=== PATIENT | female | born 1960 | race Caucasian/White ===

== ENCOUNTER 2020-12-26 23:46 | Emergency (ER) | payer OTHER ==
[2020-12-27] MEDS ORDERED: BACTRIM DS TAB1 EACH PO (02:25)
[2020-12-27] MEDS ORDERED: CEPHALEXIN500 MG PO (02:25)
[2021-02-24] MEDS ORDERED: COLACE100 MG PO (10:06)
[2021-02-24] MEDS ORDERED: PERCOCET 5-3251 EACH PO (10:06)
== END 2020-12-27 02:39 | disposition home or self-care (01) ==
LOC: ER1 23:46
DX: L02.415 Cutaneous abscess of right lower limb (principal); I10 Essential (primary) hypertension; J45.909 Unspecified asthma, uncomplicated; F17.210 Nicotine dependence, cigarettes, uncomplicated; Z90.710 Acquired absence of both cervix and uterus; Z79.899 Other long term (current) drug therapy
CPT/HCPCS: 99282

== ENCOUNTER 2021-02-13 17:44 | Emergency (ER) | payer OTHER ==
[~2021-02-13 17:44] MED LIST: BACTRIM DS TAB1 EACH PO; CEPHALEXIN500 MG PO
[2021-02-24] MEDS ORDERED: PERCOCET 5-3251 EACH PO (10:06)
[2021-02-24] MEDS ORDERED: COLACE100 MG PO (10:06)
== END 2021-02-13 18:35 | disposition home or self-care (01) ==
LOC: ER1 17:44
DX: K62.89 Other specified diseases of anus and rectum (principal); L98.9 Disorder of the skin and subcutaneous tissue, unspecified
CPT/HCPCS: 99283

== ENCOUNTER → 2021-02-23 | Outpatient (CLI) | payer OTHER ==
[~2021-02-23] MED LIST changes: +COLACE100 MG PO; +PERCOCET 5-3251 EACH PO
[2021-02-23 10:47] LABS: HEMOGLOBIN 13.8 gm/dl (12.3-15.3); RED BLOOD COUNT 4.68 M/UL (4.00-5.10); WHITE BLOOD COUNT 4.4 K/UL (4.5-11.0)
== END ==
LOC: OPSV2 09:33
PROVIDERS: Surgery
DX: D64.9 Anemia, unspecified (principal)
CPT/HCPCS: 36415; 85025

== ENCOUNTER → 2021-02-24 | Day surgery (SDC) | payer OTHER | END | disposition home or self-care (01) | LOC: OR 07:23 | DX: K64.4 Residual hemorrhoidal skin tags (principal); I10 Essential (primary) hypertension; Z20.822 Contact with and (suspected) exposure to COVID-19; Z87.891 Personal history of nicotine dependence; J45.909 Unspecified asthma, uncomplicated; K21.9 Gastro-esophageal reflux disease without esophagitis; D64.9 Anemia, unspecified; F32.9 Major depressive disorder, single episode, unspecified; F41.0 Panic disorder [episodic paroxysmal anxiety]; Z88.2 Allergy status to sulfonamides; Z88.8 Allergy status to other drugs, medicaments and biological substances | CPT/HCPCS: J1100; J1170; J2001; J2250; J2405; J2704; J2710; J3010; J7030; J7120 ==

== ENCOUNTER 2021-03-25 12:51 | Emergency (ER) | payer OTHER | END 2021-03-25 20:23 | disposition home or self-care (01) | LOC: ER1 12:51 | DX: U07.1 COVID-19 (principal) | CPT/HCPCS: 99284; U0002 ==